=== PATIENT | female | born 1960 | race Caucasian/White ===

== ENCOUNTER → 2016-11-15 | Outpatient (CLI) | payer OTHER ==
--- NOTE | 2016-11-15 10:08 | US ---
Ultrasound Pelvis Complete (Transabdominal and Endovaginal) Including Duplex/Doppler Imaging History: Pelvic fullness. R 19.00 Technique: Transabdominal and endovaginal ultrasound images were obtained. Endovaginal images obtain ed for better evaluation of the uterine myometrium and adnexa. Duplex/Doppler imaging of adnexa. Findings: Uterus measures 7 x 3 x 5 cm. Endometrial thickness is 2 mm. No definite uterine leiomyoma ta. Right ovary measures 2.6 x 2.5 x 1.4 cm. Left ovary measures 2.4 x 1.7 x 1.5 cm. No adnexal masses. No significant free fluid in the pelvis. Color Doppler flow to both ovaries without torsion. Impression: Normal ultrasound pelvis.
== END ==
LOC: BMCIMAGING 09:14
PROVIDERS: ATTEND Internal Medicine
DX: R19.00 Intra-abdominal and pelvic swelling, mass and lump, unspecified site (principal)

== ENCOUNTER → 2017-07-22 | Outpatient (CLI) | payer OTHER | LOC: BMCIMAGING 08:01 | PROVIDERS: ATTEND Internal Medicine | DX: Z12.31 Encounter for screening mammogram for malignant neoplasm of breast (principal) | CPT/HCPCS: G0202 ==

== ENCOUNTER → 2018-01-02 | Outpatient (CLI) | payer OTHER | LOC: BMCIMAGING 09:49 | PROVIDERS: ATTEND Internal Medicine | DX: M85.89 Other specified disorders of bone density and structure, multiple sites (principal); Z82.62 Family history of osteoporosis; Z79.890 Hormone replacement therapy ==

== ENCOUNTER → 2018-07-23 | Outpatient (CLI) | payer OTHER | LOC: BMCIMAGING 13:41 | PROVIDERS: ATTEND Internal Medicine | DX: Z12.31 Encounter for screening mammogram for malignant neoplasm of breast (principal) ==

== ENCOUNTER → 2019-01-16 | Outpatient (CLI) | payer OTHER | LOC: BMCIMAGING 12:55 | PROVIDERS: ATTEND Internal Medicine | DX: R01.1 Cardiac murmur, unspecified (principal) ==